=== PATIENT | male | born 2000 | race African-American/Black ===

== ENCOUNTER 2024-01-23 12:29 | Outpatient (REF) | payer SELFPAY ==
[2024-01-23 15:00] LABS: CT PCR NOT DETECTED (Not Detect.); NG PCR NOT DETECTED (Not Detect.)
[2024-01-23 16:38] LABS: Hematocrit 39.5 % (42.0-52.0); Hemoglobin 12.4 g/dl (14.0-18.0); Mean Corpuscular HGB Conc 31.4 g/dl (31.0-36.0); Mean Corpuscular Volume 92.3 fL (80.0-98.0); PLT CLUMP 1; Red Blood Count 4.28 X10*6/uL (4.60-5.80); Red Cell Distribution Width 10.9 % (11.0-16.0)
[2024-01-23 16:43] LABS: Alanine Aminotransferase 13 U/L (0-40); Alkaline Phosphatase 60 U/L (39-117); Anion Gap 10 (12-20); Aspartate Amino Transferase 19 U/L (5-37); Bilirubin Total 0.2 mg/dL (0.0-1.0); Blood Urea Nitrogen 11 mg/dL (9-16); Calcium 9.3 mg/dL (8.4-10.2); Carbon Dioxide 27 mmol/L (22-29); Chloride 106 mmol/L (96-108); Cholesterol 181 mg/dL (<200); Estimated Glomerular Filt Rate > 60; Glucose Random 78 mg/dL (60-115); HDL Cholesterol 58 mg/dL (>40); LDL Cholesterol Calculated 88 mg/dL (<100); Potassium 4.1 mmol/L (3.3-5.1); Sodium 139 mmol/L (135-145); Total Protein 7.6 g/dL (6.5-8.0); Triglycerides 177 mg/dL (<150)
[2024-01-23 16:52] LABS: TSH reflex Free T4 0.56 uIU/mL (0.32-4.0)
[2024-01-23 17:22] LABS: White Blood Count 6.8 X10*3/uL (4.8-10.8)
[2024-01-23 17:23] LABS: Platelet Count 166 X10*3/uL (160-400)
[2024-01-23 18:28] LABS: Estimated Average Glucose 88 mg/dL; Hemoglobin A1c % 4.7 % (<6.0)
[2024-01-24 07:26] LABS: Hepatitis A Antibody IgG REACTIVE (Nonreactive); ~Hepatitis A Antibody IgG 10.78 S/CO (0.00-0.99)
[2024-01-24 07:28] LABS: HBS Num1 63.82 mIU/mL (0-7.99); HBc Num1 5.68 S/CO (0.00-0.79); Hepatitis B Surface Antigen Negative (Negative); ~HepC Num1 0.09 S/CO (0.00-0.79); ~Hepatitis B Surface Antibody REACTIVE (Nonreactive); ~Hepatitis C Antibody Nonreactive (Nonreactive)
[2024-01-24 07:36] LABS: Syphilis Screen Reactive (Nonreactive)
[2024-01-24 10:19] LABS: HBc Num3 5.45 S/CO; Hepatitis B Core Antibody Reactive (Nonreactive)
[2024-01-24 23:03] LABS: Cytomegalovirus Ab IgM <30.00 AU/mL; Rubella IgG Antibody 5.22 Index
[2024-01-25 15:23] LABS: HIV RNA PCR Qn Copies 89 copies/mL (NOT DETECTED); HIV RNA PCR Qn Log Copies 1.95 (NOT DETECTED)
[2024-01-26 13:03] LABS: TS Negative Control Passed; TS Panel A 5; TS Panel B 0; TS Positive Control Passed; TSpotTB Borderline (Negative)
[2024-01-28 10:58] LABS: Absolute CD3 Count 1495 cells/uL (840-3060); Absolute CD4 Count 698 cells/uL (490-1740); Absolute CD8 Count 724 cells/uL (180-1170); Absolute Lymphocytes 2353 cells/uL (850-3900); CD4 CD8 Ratio 0.96 (0.86-5.00); Percent CD3 Cells 64 % (57-85); Percent CD4 Cells 30 % (30-61); Percent CD8 Cells 31 % (12-42)
[2024-02-01 07:42] LABS: RPR Quantitative Reactive 1:4 (Nonreactive); T.Pallidum Particle Agg Test Reactive (Nonreactive)
== END 2024-01-23 12:30 | disposition home or self-care (01) ==
LOC: HO.HHCL 12:29
PROVIDERS: Visit Provider Student in an Organized Health Care Education/Training Program
DX: Z13.6 Encounter for screening for cardiovascular disorders (principal); B20 Human immunodeficiency virus [HIV] disease
CPT/HCPCS: 0353U; 36415; 80053; 80061; 83036; 84443; 85027; 86359; 86360; 86481; 86592; 86644; 86645; 86704; 86706; 86708; 86735; 86762; 86765; 86780; 86787; 86803; 87340; 87536

== ENCOUNTER 2024-03-30 14:27 | Outpatient (REF) | payer SELFPAY ==
[2024-03-30 16:23] LABS: Basophils Percent Auto 0.7 % (0-2); Eosinophils Absolute Auto 0.2 X10*3/uL (0.0-0.4); Eosinophils Percent Auto 3.8 % (0-4); Hematocrit 38.2 % (42.0-52.0); Hemoglobin 12.1 g/dl (14.0-18.0); Imm Gran Abs Auto 0.01 X10*3/uL (0.00-0.03); Imm Gran Pct Auto 0.2 % (0.0-0.4); Lymphocytes Absolute Auto 2.4 X10*3/uL (1.2-4.9); Lymphocytes Percent Auto 44.1 % (20-40); MANUAL DIFF FLAG NO; Mean Corpuscular HGB Conc 31.7 g/dl (31.0-36.0); Mean Corpuscular Hemoglobin 29.1 pg (27.0-33.0); Mean Corpuscular Volume 91.8 fL (80.0-98.0); Monocytes Absolute Auto 0.4 X10*3/uL (0.1-1.2); Monocytes Percent Auto 7.3 % (2-11); Neutrophils Absolute Auto 2.4 x10*3/uL (2.0-8.3); Neutrophils Percent Auto 43.9 % (45-73); Platelet Count 191 X10*3/uL (160-400); Red Blood Count 4.16 X10*6/uL (4.60-5.80); Red Cell Distribution Width 10.9 % (11.0-16.0); White Blood Count 5.5 X10*3/uL (4.8-10.8)
[2024-03-30 16:43] LABS: Iron 71 mcg/dL (45-160); Percent Iron Saturation 24 % (15-50); Total Iron Binding Capacity 295 mcg/dL (228-428); Unsaturated Iron Binding 224 ug/dL
[2024-03-30 16:57] LABS: Ferritin 209 ng/mL (20-250)
[2024-03-30 17:15] LABS: Vitamin B12 609 pg/mL (200-900)
== END 2024-03-30 14:28 | disposition home or self-care (01) ==
LOC: HO.HHCL 14:27
PROVIDERS: Visit Provider Student in an Organized Health Care Education/Training Program
DX: D50.9 Iron deficiency anemia, unspecified (principal)
CPT/HCPCS: 36415; 82607; 82728; 82746; 83540; 85025; 87536

== ENCOUNTER 2024-04-06 10:17 | Outpatient (REF) | payer SELFPAY ==
[2024-04-06 15:13] LABS: CT PCR NOT DETECTED (Not Detect.); NG PCR NOT DETECTED (Not Detect.)
[2024-04-08 05:14] LABS: Toxoplasma IgG Antibody <7.20 IU/mL; Toxoplasma IgM Antibody <8.00 AU/mL
[2024-04-08 14:13] LABS: RPR Rapid Plasma Reagin REACTIVE (NON-REACTIVE)
[2024-04-08 14:53] LABS: HIV RNA PCR Qn Copies 75 copies/mL (NOT DETECTED); HIV RNA PCR Qn Log Copies 1.88 (NOT DETECTED)
[2024-04-11 11:03] LABS: C. Trachomatis RNA TMA, Throat NOT DETECTED; N. gonorrhoeae RNA TMA, Throat NOT DETECTED
== END 2024-04-06 10:18 | disposition home or self-care (01) ==
LOC: HO.HHCL 10:17
PROVIDERS: Visit Provider Student in an Organized Health Care Education/Training Program
DX: B20 Human immunodeficiency virus [HIV] disease (principal)
CPT/HCPCS: 36415; 86592; 86593; 86777; 86778; 87491; 87536; 87591

== ENCOUNTER 2024-06-04 11:40 | Outpatient (AMB) | payer SELFPAY ==
--- NOTE | 2024-06-04 11:47 | A.OFFVIS_ITS ---
Vital Signs 06/04/24 11:50 Weight 142 lb BP 135/82 Blood Pressure Location Rt brachial Position Sitting Pulse 68 Intake Visit Reasons: HIV Infection, Perianal Venereal Warts HPI HPI HIV Infection, Perianal Venereal Warts: Details: [age] year old transgender female, referred to me because perianal lesions. She says that she has noticed this for about a year now. She describes occasional bleeding from this lesions. She describes a little bit of pain once in a while. She has known HIV. She says her viral loads are undetectable. She otherwise says that she is healthy overall. [facility] Medical History (Updated 06/04/24 @ 11:50 by Saulo Regan MD) Perianal lesion Review of Systems Const Denies chills and Denies fever(s) Card Denies chest pain, Denies dyspnea and Denies dyspnea on exertion Resp Denies cough, Denies dyspnea and Denies dyspnea on exertion GI Details: Occasional blood seen wiping Denies hematochezia and Denies change in bowel habits Denies hematuria and Denies difficulty urinating Musc Denies back pain and Denies limited range of motion Neuro Denies focal weakness and Denies convulsions Psych Denies depression and Denies mood swings Physical Exam Const General: comfortable and no acute distress Orientation/consciousness: patient oriented x3 Neck Neck: Yes no lymphadenopathy Resp Auscultation: clear to auscultation bilaterally Cardio Rhythm: regular rhythm GI Other: Rectal exam shows multiple perianal skin lesions measuring in size from 2 mm to about 4 mm, fleshy, appearing condylomatous Palpation (GI): Soft to palpation, nontender and no guarding Neuro General: patient oriented x3 Assessment & Plan Assessment & Plan (1) Perianal lesion: Code(s): K62.9 - Disease of anus and rectum, unspecified Category: Medical Plan: She has multiple perianal lesions of varying sizes. This may be condylomatous pathology. Anoscopy was not done today. I explained to her that we can do exam under anesthesia and excise these perianal lesions. I explained the technique of this procedure. I reviewed the risks including but not limited to bleeding, infections, postop pain, as well as the benefits and alternatives. She says she understands and wants to proceed. I also reviewed with her what to expect postoperatively. Coding Level of Care Code New Pt Level 3 (57466) Diagnoses Perianal lesion K62.9
[2024-06-04 11:50] VITALS: BP 135/82; PULSE 68
== END 2024-06-04 11:52 | disposition home or self-care (01) ==
PROVIDERS: Visit Provider Surgery
DX: K62.9 Disease of anus and rectum, unspecified (principal)
CPT/HCPCS: 99203

== ENCOUNTER → 2024-06-04 11:43 | Outpatient (BNVA) | payer MEDICAID, SELFPAY | PROVIDERS: Visit Provider Surgery | DX: K62.9 Disease of anus and rectum, unspecified (principal) | CPT/HCPCS: 99202 ==

== ENCOUNTER 2024-06-19 09:22 | Day surgery (SDC) | payer MEDICAID, OTHER, SELFPAY ==
--- NOTE | 2024-06-18 12:07 | HO.ANESPROP2 ---
Documented by User: Makenzie Koo NP 06/18/24 14:12 HPI - Anesthesia Eval Consult details Narrative: SHEILA she/her 24yo F (transgender) for EUA,Excision of Perianal Lesion PMFSH Active Problems Active Problems: All Active Problems Perianal lesion (Acute) Past Medical History Medical History HIV infection Perianal lesion Surgical History Surgical History No pertinent past surgical history Social History Social History Are you a primary rn progressive care to a significant other at home: No Do you presently have visiting nurse or other home services: No Patient Tobacco Use Status: Never used Tobacco Use of substances other than those prescribed or required for medical reasons: Yes Substance Use Frequency: Occasionally Have you been hit, kicked, punched, or otherwise hurt by someone within the past year? If so, by whom?: No Are you DNR?: No Advance Directives: No Advance Directives Information Provided: Yes Recently lost weight without trying: No How much weight loss: Not applicable Eating poorly because of decreased appetite: No Nutrition screen score: 0 Nutrition Risks: No Nutritional Risk Poor oral hygiene: No Meds Allergies Allergy/AdvReac Type Severity Reaction Status Date / Time No Known Allergies Allergy Verified 06/19/24 12:01 Home Medications ?Medication ?Instructions ?Recorded ?Confirmed ?Last Taken ?Type bictegravir 50 mg-emtricitabine 1 tab PO DAILY 06/04/24 06/19/24 06/18/24 History 200 mg-tenofovir alafenam 25 mg tablet (Biktarvy) estradiol valerate 20 mg/mL 20 mg IM QWEEK 06/04/24 06/19/24 Unknown History intramuscular oil Exam Height,Weight and Vital Signs: Weight 64.41 kg Pertinent Lab Results Pertinent Lab Results: Laboratory Tests 03/30/24 14:30 WBC 5.5 Hgb 12.1 L Hct 38.2 L Plt Count 191 Assessment and Plan Assessment Anesthesia Assessment: Chart Reviewed Documented by User: Lizz Casey MD 06/19/24 13:10 [facility] Past Medical History Medical History HIV infection Perianal lesion Family History Family history of problems with anesthesia: No Surgical History Surgical History No pertinent past surgical history History of Problems with Anesthesia: No Social History Social History Are you a primary rn progressive care to a significant other at home: No Do you presently have visiting nurse or other home services: No Patient Tobacco Use Status: Never used Tobacco Use of substances other than those prescribed or required for medical reasons: Yes Substance Use Frequency: Occasionally Have you been hit, kicked, punched, or otherwise hurt by someone within the past year? If so, by whom?: No Are you DNR?: No Advance Directives: No Advance Directives Information Provided: Yes Recently lost weight without trying: No How much weight loss: Not applicable Eating poorly because of decreased appetite: No Nutrition screen score: 0 Nutrition Risks: No Nutritional Risk Poor oral hygiene: No Meds Allergies Allergy/AdvReac Type Severity Reaction Status Date / Time No Known Allergies Allergy Verified 06/19/24 12:01 Home Medications ?Medication ?Instructions ?Recorded ?Confirmed ?Last Taken ?Type bictegravir 50 mg-emtricitabine 1 tab PO DAILY 06/04/24 06/19/24 06/18/24 History 200 mg-tenofovir alafenam 25 mg tablet (Biktarvy) estradiol valerate 20 mg/mL 20 mg IM QWEEK 06/04/24 06/19/24 Unknown History intramuscular oil Exam Airway TM Dist: >3cm Neck ROM: Full Heart: rrr Lungs: cta Assessment and Plan Assessment Anesthesia Assessment: Anesthesia Plan Discussed Final Anesthetic Review Family History of Problems with Anesthesia: No History of Problems with Anesthesia: No NPO: Yes ASA Class: II Final Preanesthetic Review: No Changes in Pt Med Stat, Meds/Allgs Chart Reviewed, Consent Obtained/Reviewed and Anes Risks/Benef Reviewed Patient Risk: Low Procedure Risk: Low Anesthetic Plan Anesthetic Plan: GA Disposition: Standard PACU
[2024-06-19 12:02] VITALS: BP 145/77; PULSE 63; RESP 16; TEMP 36.9; O2SAT 100; BMI 21.7
[2024-06-19] MEDS: Lactated Ringers 1,000 ML 100 ML IVCONT (12:19)
--- NOTE | 2024-06-19 12:57 | MHC.SHP ---
Pre-Procedural Eval Section A - 24 Hr Update-Section A only Date of Service: 06/19/24 The patient is an INPATIENT: No Changes since office visit: No Cold of Flu in the past 2 weeks, No New Medical Problems, No Changes in Medication and No Patient answered all questions The patient has been examined within 24 hours of the surgical procedure. The History & Physical has been completed within 30 days and I have reviewed it.: Yes Section B - Complete if H&P > 30 days Chief Complaint: Disease of anus and rectum, unspecified Allergies: Allergies Allergy/AdvReac Type Severity Reaction Status Date / Time No Known Allergies Allergy Verified 06/19/24 12:01 Plan I have reviewed the history and physical and performed a pertinent physical examination on my patient. No changes have occurred unless specified. Time Spent With Patient Time: Total time managing care of this patient today ____ minutes.
--- NOTE | 2024-06-19 13:49 | W.PM.OPN ---
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 This appeared to be condylomatous. I explained to her that it would be best to proceed with exam under anesthesia and excision of this lesions. She understood the technique of the planned procedure as well as the risks, benefits, and alternatives She was brought to the operating room. She was placed in prone pasha-knife position under general anesthesia via endotracheal tube. The buttocks were retracted with wide tape laterally. The perianal area was prepped and draped in the usual sterile fashion. A surgical time-out was done. The patient received Cefotan 2 g IV preoperatively Examination of perianal area revealed multiple lesions on both the left and right side that appeared to be condylomatous, measuring in size from about 2 mm to 5 mm. All of the visible condylomatous lesions were excised. The smaller lesions measuring less than 2 mm were fulgurated down to grayish eschar . I inserted the Gela Whitlock retractor. I examined the anal canal circumferentially. There were some other smaller and flatter lesions that also appeared to be condylomatous in the anal canal. This were fulgurated with electrocautery I examined the perianal area in the anal canal again and there were no other lesions seen I infiltrated the perianal area with Marcaine 0.5% for postop analgesia. The procedure was then completed The patient tolerated the procedure well. There were no immediate complications. The patient was extubated without difficulty and transferred to the recovery room with stable vital signs.
[2024-06-19 14:05] VITALS: BP 114/70; PULSE 80; RESP 12; TEMP 36.1; O2SAT 97
[2024-06-19 14:10] VITALS: BP 111/62; PULSE 74; RESP 12; O2SAT 99
[2024-06-19 14:15] VITALS: BP 127/65; PULSE 71; RESP 16; O2SAT 100
[2024-06-19 14:20] VITALS: BP 125/81; PULSE 79; RESP 16; O2SAT 100
[2024-06-19 14:35] VITALS: BP 129/78; PULSE 65; RESP 16; TEMP 36.1; O2SAT 100
== END 2024-06-19 15:03 | disposition home or self-care (01) ==
PROVIDERS: PCP Student in an Organized Health Care Education/Training Program; Visit Provider Surgery
PROC: (CPT 46922; principal; 2024-06-19 13:50)
DX: K62.9 Disease of anus and rectum, unspecified (principal); A63.0 Anogenital (venereal) warts; K64.4 Residual hemorrhoidal skin tags; F64.0 Transsexualism; Z21 Asymptomatic human immunodeficiency virus [HIV] infection status; Z79.1 Long term (current) use of non-steroidal anti-inflammatories (NSAID); Z79.899 Other long term (current) drug therapy
CPT/HCPCS: 46922; 88304; 88305; J1100; J2250; J2405; J2704; J2795; J3010

== ENCOUNTER → 2024-06-19 09:22 | Outpatient (BNV) | payer SELFPAY | PROVIDERS: PCP Student in an Organized Health Care Education/Training Program; Visit Provider Surgery | DX: A63.0 Anogenital (venereal) warts (principal) | CPT/HCPCS: 46922 ==

== ENCOUNTER 2024-07-02 12:33 | Outpatient (AMB) | payer MEDICAID, SELFPAY ==
--- NOTE | 2024-07-02 12:48 | MHC.OFFVIS ---
Intake Visit Reasons: S/P EUA, exc. perianal lesions Intake Note: This patient presents for post-op assessment status post Exam under anesthesia, excision of perianal and anal canal lesions with fulguration of smaller lesions, more than 10 lesions removed or fulgurated. Pt c/o; reports no complaints. 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 perianal lesions: Details: She underwent excision perianal lesions under anesthesia last 06/19/2024. She tolerated procedure well. She denies significant complaints except for some itching on the area. [facility] Medical History HIV infection Perianal lesion Surgical History Hx of surgical procedure (~06/19/24) No pertinent past surgical history Social History Are you a primary caregivers homecare to a significant other at home: No Do you presently have visiting nurse or other home services: No Patient Tobacco Use Status: Never used Tobacco Review of Systems Const Denies chills and Denies fever(s) Physical Exam Const General: comfortable and no acute distress Resp Effort & Inspection: normal respiratory effort GI Other: Rectal exam shows the excision sites to be healing very well. There was no signs of any infection. No discharge Assessment & Plan Assessment & Plan (1) Perianal lesion: Code(s): K62.9 - Disease of anus and rectum, unspecified Category: Medical Plan: Status post excision. 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 I explained to her the above findings. The excision sites are healing well. I emphasized to her the need for good hygiene for now. She can otherwise follow up on a p.r.n. basis. Coding Level of Care Code Global (85167) Diagnoses Perianal lesion K62.9
== END 2024-07-02 13:30 | disposition home or self-care (01) ==
PROVIDERS: Visit Provider Surgery
DX: K62.9 Disease of anus and rectum, unspecified (principal)
CPT/HCPCS: 99024

== ENCOUNTER → 2024-07-02 12:33 | Outpatient (BNVA) | payer MEDICAID, SELFPAY | PROVIDERS: Visit Provider Surgery | DX: Z48.815 Encounter for surgical aftercare following surgery on the digestive system (principal); Z87.19 Personal history of other diseases of the digestive system; Z98.890 Other specified postprocedural states | CPT/HCPCS: 99212 ==

== ENCOUNTER 2024-08-28 15:04 | Outpatient (REF) | payer MEDICAID, OTHER, SELFPAY ==
[2024-08-28 16:10] LABS: MANUAL DIFF FLAG NO
[2024-08-28 16:16] LABS: Basophils Percent Auto 0.8 % (0-2); Eosinophils Absolute Auto 0.3 X10*3/uL (0.0-0.4); Hematocrit 36.6 % (42.0-52.0); Hemoglobin 11.8 g/dl (14.0-18.0); Imm Gran Abs Auto 0.02 X10*3/uL (0.00-0.03); Imm Gran Pct Auto 0.4 % (0.0-0.4); Lymphocytes Percent Auto 38.2 % (20-40); Mean Corpuscular HGB Conc 32.2 g/dl (31.0-36.0); Mean Corpuscular Hemoglobin 29.6 pg (27.0-33.0); Mean Corpuscular Volume 91.7 fL (80.0-98.0); Mean Platelet Volume 12.5 fL (9.4-12.4); Monocytes Absolute Auto 0.4 X10*3/uL (0.1-1.2); Monocytes Percent Auto 7.2 % (2-11); Neutrophils Absolute Auto 2.5 x10*3/uL (2.0-8.3); Neutrophils Percent Auto 48.4 % (45-73); Platelet Count 180 X10*3/uL (160-400); Red Blood Count 3.99 X10*6/uL (4.60-5.80); Red Cell Distribution Width 11.2 % (11.0-16.0); White Blood Count 5.2 X10*3/uL (4.8-10.8)
[2024-08-28 16:29] LABS: Alanine Aminotransferase 9 U/L (0-40); Albumin Level 3.8 g/dL (3.5-5.0); Alkaline Phosphatase 59 U/L (39-117); Anion Gap 9 (12-20); Aspartate Amino Transferase 19 U/L (5-37); Bilirubin Total 0.4 mg/dL (0.0-1.0); Blood Urea Nitrogen 7 mg/dL (9-16); Calcium 9.3 mg/dL (8.4-10.2); Carbon Dioxide 26 mmol/L (22-29); Chloride 105 mmol/L (96-108); Estimated Glomerular Filt Rate > 60; Glucose Random 90 mg/dL (60-115); Potassium 4.1 mmol/L (3.3-5.1); Sodium 136 mmol/L (135-145); Total Protein 7.2 g/dL (6.5-8.0)
[2024-08-31 15:23] LABS: RPR Rapid Plasma Reagin REACTIVE (NON-REACTIVE)
[2024-08-31 15:32] LABS: HIV RNA PCR Qn Copies <20 DETECTED copies/mL (NOT DETECTED); HIV RNA PCR Qn Log Copies <1.30 DETECTED (NOT DETECTED)
[2024-09-02 17:18] LABS: Absolute CD3 Count 1237 cells/uL (840-3060); Absolute CD4 Count 695 cells/uL (490-1740); Absolute CD8 Count 517 cells/uL (180-1170); Absolute Lymphocytes 1638 cells/uL (850-3900); CD4 CD8 Ratio 1.34 (0.86-5.00); Percent CD3 Cells 75 % (57-85); Percent CD4 Cells 42 % (30-61); Percent CD8 Cells 32 % (12-42)
== END 2024-08-28 15:05 | disposition home or self-care (01) ==
LOC: HO.HHCL 15:04
PROVIDERS: Visit Provider Student in an Organized Health Care Education/Training Program
DX: B20 Human immunodeficiency virus [HIV] disease (principal)
CPT/HCPCS: 36415; 80053; 85025; 86359; 86360; 86592; 86593; 87536; 87900; 87901; 87906

== ENCOUNTER 2024-10-05 17:40 | Outpatient (REF) | payer MEDICAID, SELFPAY ==
[2024-10-06 05:13] LABS: CT PCR NOT DETECTED (Not Detect.); NG PCR NOT DETECTED (Not Detect.)
== END 2024-10-05 17:41 | disposition home or self-care (01) ==
LOC: HO.HHCLNP 17:40
PROVIDERS: Visit Provider Internal Medicine
DX: R30.0 Dysuria (principal); Z11.3 Encounter for screening for infections with a predominantly sexual mode of transmission
CPT/HCPCS: 87491; 87591

== ENCOUNTER 2024-12-28 12:10 | Outpatient (REF) | payer MEDICAID, SELFPAY ==
[2025-01-01 21:24] LABS: Testosterone, Total 14 ng/dL (250-1100)
[2025-01-08 04:38] LABS: Estradiol Ultra Sensitive 268 pg/mL (< OR = 29)
== END 2024-12-28 12:11 | disposition home or self-care (01) ==
LOC: HO.HHCL 12:10
PROVIDERS: Visit Provider Advanced Practice Midwife
DX: Z78.9 Other specified health status (principal)
CPT/HCPCS: 36415; 82670; 84403

== ENCOUNTER 2025-02-19 12:02 | Outpatient (REF) | payer MEDICAID, SELFPAY ==
[2025-02-19 13:04] LABS: MANUAL DIFF FLAG NO
[2025-02-19 13:16] LABS: Basophils Percent Auto 0.5 % (0-2); Eosinophils Absolute Auto 0.2 X10*3/uL (0.0-0.4); Hematocrit 32.6 % (42.0-52.0); Imm Gran Abs Auto 0.03 X10*3/uL (0.00-0.03); Imm Gran Pct Auto 0.4 % (0.0-0.4); Lymphocytes Absolute Auto 1.8 X10*3/uL (1.2-4.9); Lymphocytes Percent Auto 23.3 % (20-40); Mean Corpuscular HGB Conc 30.7 g/dl (31.0-36.0); Mean Corpuscular Hemoglobin 28.9 pg (27.0-33.0); Mean Corpuscular Volume 94.2 fL (80.0-98.0); Mean Platelet Volume 12.5 fL (9.4-12.4); Monocytes Absolute Auto 0.4 X10*3/uL (0.1-1.2); Monocytes Percent Auto 4.6 % (2-11); Neutrophils Absolute Auto 5.2 x10*3/uL (2.0-8.3); Neutrophils Percent Auto 69.2 % (45-73); Platelet Count 195 X10*3/uL (160-400); Red Blood Count 3.46 X10*6/uL (4.60-5.80); Red Cell Distribution Width 11.9 % (11.0-16.0); White Blood Count 7.6 X10*3/uL (4.8-10.8)
[2025-02-19 13:52] LABS: Alanine Aminotransferase 13 U/L (0-40); Alkaline Phosphatase 55 U/L (39-117); Anion Gap 9 (12-20); Aspartate Amino Transferase 19 U/L (5-37); Bilirubin Total 0.3 mg/dL (0.0-1.0); Blood Urea Nitrogen 11 mg/dL (9-16); Calcium 9.3 mg/dL (8.4-10.2); Carbon Dioxide 25 mmol/L (22-29); Chloride 107 mmol/L (96-108); Estimated Glomerular Filt Rate > 60; Glucose Random 76 mg/dL (60-115); Potassium 4.3 mmol/L (3.3-5.1); Sodium 137 mmol/L (135-145); Total Protein 7.4 g/dL (6.5-8.0)
[2025-02-20 15:38] LABS: HIV RNA PCR Qn Copies 29 copies/mL (NOT DETECTED); HIV RNA PCR Qn Log Copies 1.46 (NOT DETECTED)
[2025-02-24 14:13] LABS: Absolute CD3 Count 1220 cells/uL (840-3060); Absolute CD4 Count 681 cells/uL (490-1740); Absolute CD8 Count 511 cells/uL (180-1170); Absolute Lymphocytes 1691 cells/uL (850-3900); CD4 CD8 Ratio 1.33 (0.86-5.00); Percent CD3 Cells 72 % (57-85); Percent CD4 Cells 40 % (30-61); Percent CD8 Cells 30 % (12-42)
== END 2025-02-19 12:03 | disposition home or self-care (01) ==
LOC: HO.HHCL 12:02
PROVIDERS: Visit Provider Student in an Organized Health Care Education/Training Program
DX: Z21 Asymptomatic human immunodeficiency virus [HIV] infection status (principal)
CPT/HCPCS: 36415; 80053; 85025; 86359; 86360; 87536

== ENCOUNTER 2025-02-20 13:26 | Outpatient (REF) | payer MEDICAID, SELFPAY ==
[2025-02-21 14:31] LABS: CT PCR NOT DETECTED (Not Detect.); NG PCR NOT DETECTED (Not Detect.)
== END 2025-02-20 13:27 | disposition home or self-care (01) ==
LOC: HO.HHCLNP 13:26
PROVIDERS: Visit Provider Registered Nurse
DX: R30.0 Dysuria (principal)
CPT/HCPCS: 87086; 87491; 87591

== ENCOUNTER 2025-04-19 13:09 | Outpatient (REF) | payer MEDICAID, SELFPAY ==
[2025-04-19 15:51] LABS: CT PCR Urine NOT DETECTED (Not Detect.); NG PCR Urine NOT DETECTED (Not Detect.)
[2025-04-19 17:18] LABS: Hemoglobin A1C 55.1896 umol/L; Total Hemoglobin (HGBA1C) 2942.9051 umol/L
[2025-04-19 17:35] LABS: Iron 55 mcg/dL (45-160); Percent Iron Saturation 19 % (15-50); Total Iron Binding Capacity 296 mcg/dL (228-428); Unsaturated Iron Binding 241 ug/dL
[2025-04-19 17:43] LABS: Ferritin 161 ng/mL (20-250)
[2025-04-19 17:46] LABS: Folate 6.6 ng/mL (> or = 4.0); Vitamin B12 497 pg/mL (200-900)
[2025-04-19 18:22] LABS: Free T4 (Free Thyroxine) 1.00 ng/dL (0.71-1.85)
[2025-04-20 08:24] LABS: HBS Num1 57.83 mIU/mL (0-7.99); ~Hepatitis B Surface Antibody REACTIVE (Nonreactive)
[2025-04-20 14:48] LABS: Hepatitis B Viral DNA Qn - cp NOT DETECTED Log IU/mL (NOT DETECTED); Hepatitis B Viral DNA Qn-IU/mL NOT DETECTED (NOT DETECTED)
[2025-04-21 12:19] LABS: HCV Log PCR <1.18 NOT DETECTED Log IU/mL (NOT DETECTED); HepC Viral Load <15 NOT DETECTED IU/mL (NOT DETECTED)
[2025-04-22 06:53] LABS: TS Negative Control Passed; TS Panel A 10; TS Panel B 9; TS Positive Control Passed; TSpotTB Positive (Negative)
[2025-04-22 10:28] LABS: C.Trachomatis RNA TMA, Rectal NOT DETECTED; N.Gonorrhoeae RNA TMA, Rectal NOT DETECTED
[2025-04-22 11:39] LABS: C. Trachomatis RNA TMA, Throat NOT DETECTED; N. gonorrhoeae RNA TMA, Throat NOT DETECTED
[2025-04-22 14:14] LABS: Rapid Plasma Reagin Ab Titer 1:2
== END 2025-04-19 13:10 | disposition home or self-care (01) ==
LOC: HO.HHCL 13:09
PROVIDERS: PCP Student in an Organized Health Care Education/Training Program; Visit Provider Student in an Organized Health Care Education/Training Program
DX: Z11.59 Encounter for screening for other viral diseases (principal); Z00.00 Encounter for general adult medical examination without abnormal findings; Z11.1 Encounter for screening for respiratory tuberculosis; Z21 Asymptomatic human immunodeficiency virus [HIV] infection status; Z86.19 Personal history of other infectious and parasitic diseases; D64.9 Anemia, unspecified
CPT/HCPCS: 36415; 82607; 82728; 82746; 83036; 83540; 84439; 84443; 86481; 86592; 86593; 86706; 87491; 87517; 87522; 87591

== ENCOUNTER 2025-06-29 15:34 | Outpatient (REF) | payer MEDICAID, SELFPAY ==
[2025-06-29 17:29] LABS: Free T4 (Free Thyroxine) 0.97 ng/dL (0.71-1.85); Thyroid Stimulating Hormone 0.41 uIU/mL (0.32-4.0)
== END 2025-06-29 15:35 | disposition home or self-care (01) ==
LOC: HO.HHCL 15:34
PROVIDERS: PCP Student in an Organized Health Care Education/Training Program; Visit Provider Student in an Organized Health Care Education/Training Program
DX: R94.6 Abnormal results of thyroid function studies (principal)
CPT/HCPCS: 36415; 84439; 84443; 87536

== ENCOUNTER 2025-06-30 13:30 | Outpatient (REF) | payer MEDICAID, SELFPAY ==
[2025-07-01 14:58] LABS: HIV RNA PCR Qn Copies 72 copies/mL (NOT DETECTED); HIV RNA PCR Qn Log Copies 1.86 (NOT DETECTED)
== END 2025-06-30 13:31 | disposition home or self-care (01) ==
LOC: HO.HHCL 13:30
PROVIDERS: PCP Student in an Organized Health Care Education/Training Program; Visit Provider Student in an Organized Health Care Education/Training Program
DX: Z21 Asymptomatic human immunodeficiency virus [HIV] infection status (principal)
CPT/HCPCS: 36415; 87536

== ENCOUNTER 2025-07-12 11:10 | Outpatient (REF) | payer MEDICAID, SELFPAY ==
[2025-07-21 17:09] LABS: HIV 1 Integrase Proviral DNA DETECTED; HIV 1 PR RT Proviral DNA DETECTED
== END 2025-07-12 11:11 | disposition home or self-care (01) ==
LOC: HO.HHCL 11:10
PROVIDERS: Student in an Organized Health Care Education/Training Program; PCP Nurse Practitioner Family; Visit Provider Internal Medicine
DX: Z21 Asymptomatic human immunodeficiency virus [HIV] infection status (principal)
CPT/HCPCS: 36415; 87900; 87901; 87906

== ENCOUNTER 2025-09-16 11:37 | Outpatient (REF) | payer MEDICAID, SELFPAY ==
[2025-09-16 13:59] LABS: MANUAL DIFF FLAG NO
[2025-09-16 14:04] LABS: Hematocrit 36.3 % (42.0-52.0); Hemoglobin 11.4 g/dl (14.0-18.0); Imm Gran Abs Auto 0.02 X10*3/uL (0.00-0.03); Imm Gran Pct Auto 0.2 % (0.0-0.4); Lymphocytes Absolute Auto 2.5 X10*3/uL (1.2-4.9); Mean Corpuscular HGB Conc 31.4 g/dl (31.0-36.0); Mean Corpuscular Hemoglobin 27.8 pg (27.0-33.0); Mean Corpuscular Volume 88.5 fL (80.0-98.0); NRBC Abs Auto 0.000 X10*3/uL (0.0-0.012); NRBC Pct Auto 0.0 /100WBC (0.0-0.2); Platelet Count 169 X10*3/uL (160-400); Red Blood Count 4.10 X10*6/uL (4.60-5.80); White Blood Count 8.1 X10*3/uL (4.8-10.8)
[2025-09-16 14:14] LABS: Alanine Aminotransferase 8 U/L (0-40); Albumin Level 4.3 g/dL (3.5-5.0); Alkaline Phosphatase 62 U/L (39-117); Anion Gap 9 (12-20); Aspartate Amino Transferase 19 U/L (5-37); Blood Urea Nitrogen 13 mg/dL (9-16); Calcium 9.5 mg/dL (8.4-10.2); Carbon Dioxide 26 mmol/L (22-29); Chloride 105 mmol/L (96-108); Estimated Glomerular Filt Rate > 60; Potassium 3.8 mmol/L (3.3-5.1); Sodium 136 mmol/L (135-145); Total Protein 7.6 g/dL (6.5-8.0)
== END 2025-09-16 11:38 ==
LOC: HO.HHCL 11:37
PROVIDERS: PCP Student in an Organized Health Care Education/Training Program; Visit Provider Student in an Organized Health Care Education/Training Program
DX: Z21 Asymptomatic human immunodeficiency virus [HIV] infection status (principal)
CPT/HCPCS: 36415; 80053; 85025; 87536